=== PATIENT | male | born 1970 | race Caucasian/White ===

== ENCOUNTER 2019-03-03 21:20 | Emergency (ER) | payer SELFPAY ==
[~2019-03-03] VITALS: Ht 188 cm; Wt 90.9 kg
[2019-03-03] MEDS ORDERED: diazePAM 5 MG TAB PO ONE (23:45)
[2019-03-03] MEDS ORDERED: IBUPROFEN 600 MG TAB PO ONE (23:45)
[2019-03-03] MEDS ORDERED: LIDOCAINE 5% (LIDODERM) PATCH TD ONE (23:45)
[2019-03-03] MEDS ORDERED: methylPREDNISolone INJ 125 MG/2 ML VIAL (J2930) IM ONE (23:45)
[2019-03-03 23:54] LABS: HEMATOCRIT 42.9 % (42.0-52.0); MEAN CORPUSCULAR HEMOGLOBIN 33.5 pg (27.0-33.0); MEAN CORPUSCULAR VOLUME 95.8 fl (80.0-96.0); PLATELET COUNT, AUTOMATED 171 10^3/uL (150-450); RED BLOOD COUNT 4.48 10^6/uL (4.30-6.10); WHITE BLOOD COUNT 10.6 10^3/uL (4.0-10.0)
[2019-03-04] MEDS ORDERED: MORPHINE 4 MG/ML 1ML VIAL/SYRINGE (J2270) IM STA (01:15)
[2019-03-04] MEDS ORDERED: ONDANSETRON 4 MG ORAL DISINTEGRATING TAB (Q0162 PER 1MG) PO ONE (01:30)
--- NOTE | 2019-03-04 01:50 | REPVR ---
EXAM: CT Thoracic Spine Without Contrast EXAM DATE/TIME: 03/04/2019 12:43 AM CLINICAL HISTORY: 48 years old, male; Pain in thoracic spine; Additional Info: back pain, with tingling down leg TECHNIQUE: Imaging protocol: Computed tomography images of the thoracic spine without contrast. Radiation optimization: All CT scans at this facility use at least one of these dose optimization techniques: automated exposure control; mA and/or kV adjustment per patient size (includes targeted exams where dose is matched to clinical indication); or iterative reconstruction. COMPARISON: No relevant prior studies available. FINDINGS: Limitations: Examination is limited by motion artifact. Vertebrae: No acute fracture. Normal alignment. Discs/Spinal canal/Neural foramina: Evaluation of the spinal canal is limited. Soft tissues: Unremarkable. Lungs: Nodular density in the posterior right lower lobe measuring 10 mm. Series 203 image 26. Gallbladder and bile ducts: Status post cholecystectomy. IMPRESSION: 1. No acute fracture. 2. Nodular density in the posterior right lower lobe. For both low risk and high risk patients, consider CT at 3 months. (morgan Mcknight al., Fleischner Society, 2017) Electronically signed by: Willow Sanchez On 03/04/2019 01:49:47 AM
--- NOTE | 2019-03-04 01:51 | REPVR ---
EXAM: CT Lumbar Spine Without Contrast EXAM DATE/TIME: 03/04/2019 12:43 AM CLINICAL HISTORY: 48 years old, male; Low back pain; Additional Info: back pain, with tingling down leg TECHNIQUE: Imaging protocol: Computed tomography images of the lumbar spine without contrast. Radiation optimization: All CT scans at this facility use at least one of these dose optimization techniques: automated exposure control; mA and/or kV adjustment per patient size (includes targeted exams where dose is matched to clinical indication); or iterative reconstruction. COMPARISON: No relevant prior studies available. FINDINGS: Limitations: Examination is limited by motion artifact. Vertebrae: No acute fracture. No subluxation. Lumbarization of the S1 vertebra. L1-L2: No disc herniation. No spinal stenosis. 6 mm left foraminal disc osteophyte complex. Mild right neural foraminal narrowing. Moderate left neural foraminal narrowing. L2-L3: 4 mm diffuse disc bulge. No spinal stenosis. Moderate right neural foraminal narrowing. Moderate left neural foraminal narrowing. L3-L4: No disc herniation. No spinal stenosis. No neural foraminal narrowing. L4-L5: 5 mm partially calcified diffuse disc bulge. No spinal stenosis. Moderate right neural foraminal narrowing. Moderate left neural foraminal narrowing. L5-S1: No disc herniation. No spinal stenosis. No neural foraminal narrowing. Vasculature: Moderate calcified atherosclerotic disease. Soft tissues: Unremarkable. IMPRESSION: 1. No acute fracture. 2. Degenerative changes as described. Electronically signed by: Willow Sanchez On 03/04/2019 01:51:17 AM
[2019-03-04] MEDS ORDERED: PRED20TA PO (03:11)
[2019-03-04] MEDS ORDERED: OXYCODONE/APAP 5MG/325MG(BULK FOR ED) 1 TABLET PO ONE (03:15)
[2019-03-04 03:23] VITALS: BP 179/88
[2019-03-04] MEDS ORDERED: **NOTE PATIENT COMMENT** MISC XX ONE (11:45)
--- NOTE | 2019-03-10 13:38 | ED PDOC ---
Post-Departure Follow-Up [facility] faxed formal reprt of ct t spine for fu Corey Britton MD Mar 10, 2019 13:38
== END 2019-03-04 03:26 | disposition home or self-care (01) ==
LOC: M ED 21:20
DX: R91.1 Solitary pulmonary nodule (principal); R22.31 Localized swelling, mass and lump, right upper limb; M51.36 Other intervertebral disc degeneration, lumbar region; F17.210 Nicotine dependence, cigarettes, uncomplicated
CPT/HCPCS: 36415; 72128; 72131; 85027; 96372; 99283; J2270; J2930; Q0162